=== PATIENT | male | born 1960 | race Caucasian/White ===

== ENCOUNTER 2020-10-07 08:02 | Emergency (ER) | payer OTHER ==
[~2020-10-07] VITALS: Ht 172.7 cm; Wt 90.7 kg
[~2020-10-07 08:02] MED LIST: BACTRIM DS TAB1 EACH PO; BIAXIN 500 MG500 M1; CALCITRIOL0.25 MCG; CALCIUM 500+D1 EAC2; FOSAMAX 70 MG T70 M1; LOPID600 MG; MULTIVITAMINS; SUSTIVA600 MG; TRAVADA; TRICOR145 MG
[2020-10-07] MEDS ORDERED: BLOOD PRESSURE (08:23)
[2020-10-07] MEDS ORDERED: DESCOVY 200-251 EACH PO (08:23)
[2020-10-07 08:52] LABS: ABSOLUTE EOSINOPHILS 0.1 thou/uL (0.0-0.7); ABSOLUTE LYMPHOCYTES 0.9 thou/uL (0.8-5.3); ABSOLUTE MONOCYTES 0.4 thou/uL (0.0-1.2); ABSOLUTE NEUTROPHILS 3.6 thou/uL (1.6-8.1); BASOPHILS 0.7 %; EOSINOPHILS 2.1 %; HEMATOCRIT 42.4 % (42.0-52.0); HEMOGLOBIN 14.7 gm/dL (14.0-18.0); LYMPHOCYTES 18.2 %; MCHC 34.6 g/dL (28.0-37.0); MCV 95.4 fL (80.0-100.0); MONOCYTES 7.2 %; NUCLEATED RBCS 0 /100WBC; PLATELET COUNT* 239 thou/uL (150-400); POLYS 71.8 %; RBC 4.45 mil/uL (4.50-6.00); RDW-CV 12.6 % (10.5-14.5)
[2020-10-07] MEDS ORDERED: HYDROCODON-ACE1 EAC7 PO (09:06)
[2020-10-07] MEDS ORDERED: FLEXERIL PO (09:06)
[2020-10-07 09:32] LABS: CALCIUM 9.6 mg/dL (8.5-10.1); CREATININE 1.1 mg/dL (0.6-1.3); POTASSIUM 4.2 mmol/L (3.5-5.1)
[2020-10-07 09:37] LABS: ALBUMIN 4.4 g/dL (3.4-5.0); TOTAL BILIRUBIN 0.3 mg/dL (<0.1-1.0); TOTAL PROTEIN 8.2 g/dL (6.4-8.2)
[2020-10-07 11:45] VITALS: BP 121/79
--- NOTE | 2020-10-07 16:11 | EKG ---
[place] [address] ELECTROCARDIOGRAM REPORT Name: LUZ MARINA HATCH JR Room: [facility]#: [id number] Admission: 10/07/20 Attend Phys: Discharge: 10/07/20 Date of : 62 Date of Service: 10/07/20902 Report #: [id number] THIS REPORT FOR: //name// [facility] ED Test Date: 2020-10-07 Test Time: 09:03:11 Pat Name: LUZ MARINA HATCH Department: Room: Gender: Gel [employer] Sprayer: YOLIE : 1960 Requested By: Carmelo Haro Order Number: [id number] MD: Kane Kirkpatrick Measurements Intervals [place] Rate: 80 P: 58 KS: 169 QRS: 27 QRSD: 103 T: 20 QT: 379 QTc: 438 Interpretive Statements Sinus rhythm Low voltage, precordial leads Baseline wander in lead(s) I,II,III,aVR,aVL,aVF,V1,V2,V3,V4 No previous ECG available for comparison Electronically Signed On 10-07-2020 16:11:39 CDT by Kane Kirkpatrick [email or web address] <ELECTRONICALLY SIGNED> By: Kane Kirkpatrick MD, [facility] 10/07/20 [id number] Kane Kirkpatrick MD, [facility] /EPI
== END 2020-10-07 11:46 | disposition home or self-care (01) ==
LOC: M.ERS 08:02
PROVIDERS: Family Medicine
DX: M54.6 Pain in thoracic spine (principal); I10 Essential (primary) hypertension; Z88.0 Allergy status to penicillin